=== PATIENT | male | born 1985 | race Caucasian/White ===

== ENCOUNTER 2018-03-15 09:51 | Emergency (ER) | payer BC ==
[~2018-03-15] VITALS: Ht 193 cm; Wt 135.3 kg
[2018-03-15] MEDS ORDERED: LORTAB 5-325 M1 EACH PO (12:13)
[2018-03-15 13:01] VITALS: BP 135/75
== END 2018-03-15 13:19 | disposition home or self-care (01) ==
LOC: EME 09:51
PROC: 2W3QX1Z Immobilization of Right Lower Leg using Splint (ICD-10-PCS; principal; 2018-03-15)
DX: S82.51XA Displaced fracture of medial malleolus of right tibia, initial encounter for closed fracture (principal); W10.9XXA Fall (on) (from) unspecified stairs and steps, initial encounter; Y99.0 Civilian activity done for income or pay
CPT/HCPCS: 73610; 99281; 99284